=== PATIENT | female | born 1980 | race African-American/Black ===

== ENCOUNTER 2016-11-18 12:28 | Emergency (ER) | payer MEDICAID, OTHER ==
[~2016-11-18] VITALS: Ht 165.1 cm; Wt 90.7 kg
[2016-11-18 13:30] VITALS: BP 114/68
[2016-11-18] MEDS ORDERED: diphenhdrAMINE HCL 50 MG/1 ML VL IV ONE (14:15)
[2016-11-18] MEDS ORDERED: methylPREDNISolone SOD SUCC 125 MG/2 ML VL IV ONE (14:15)
[2016-11-18] MEDS ORDERED: cefTRIAXone 1GM/50ML D5W 50 ML IV ONE (14:30)
== END 2016-11-18 15:05 | disposition home or self-care (01) ==
LOC: EDBD 12:28 → ER 12:45
DX: T78.40XA Allergy, unspecified, initial encounter (principal); J03.90 Acute tonsillitis, unspecified
CPT/HCPCS: 96365; 96375; 99284; J0696; J1200; J2930

== ENCOUNTER 2023-08-22 10:00 | Outpatient (CLI) | payer MEDICAID ==
[2023-08-22] MEDS ORDERED: ALBUTEROL SULF 2.5 MG/0.5ML(0.5%) NEB SOLN ONE (10:30)
== END 2023-08-22 16:36 | disposition home or self-care (01) ==
LOC: RT 10:00
PROVIDERS: ATTEND Internal Medicine Pulmonary Disease
DX: J44.9 Chronic obstructive pulmonary disease, unspecified (principal); J45.50 Severe persistent asthma, uncomplicated
CPT/HCPCS: 94060; 94727; 94729